=== PATIENT | male | born 1965 | race Caucasian/White ===

== ENCOUNTER 2023-03-15 08:13 | Inpatient (IN) ==
[2023-03-15] MEDS ORDERED: ONDANSETRON INJ 2 MG/ML 2 ML VIAL IV STA ×2 (08:55→09:42)
[2023-03-15] MEDS ORDERED: HYDROmorphone INJ 1 MG/ML SYRINGE IV STA (08:55)
[2023-03-15] MEDS ORDERED: SODIUM CHLORIDE 0.9% 1000ML 1,000 ML IV ONE ×2 (08:59→11:08)
--- NOTE | 2023-03-15 09:04 | Emergency Department Note ---
Impression & Plan Left upper lobe pneumonia, Acute intractable headache, Intractable vomiting, Failure of outpatient treatment ED Provider Note Name: RICARDO MANCIA Age: 57 Sex: M Arrives Via: Walk-In Informant: Patient, ED Provider: Reynaldo Sellers MD Chief Complaint: Illness Impression: As per impressions above Medical Decision Makin-year-old male arrives for evaluation of pneumonia and headache. He has a history of GERD but otherwise is quite healthy. Patient with diagnosis of left upper lobe pneumonia just 2 days ago at this facility. He has been on Omnicef and Doxy. Symptoms have continued worsening with increasing cough fevers chills and now an intractable headache. Severe anterior headache. A CT of the head is fortunately negative. Laboratory work-up is relatively unremarkable. An LP was obtained after discussing risks benefits and this is essentially unremarkable. A chest x-ray reveals significant increase in the left upper lobe pneumonia. He is having intractable vomiting while here and required multiple rounds Zofran and finally some IV Ativan to get symptoms under control. For the headache he received IV Dilaudid and then some IV Tylenol. This did seem to help the headache. Patient's oxygen remained in the mid 90s on room air however he did start getting some increasing junky lung sounds during his stay. I do not think that discharge would be in this gentlemen's favor and thus hospitalist was consulted for further management. At this time with normal vitals, normal lactic acid and no significant white blood cell count elevation I do not feel patient is truly severe sepsis or septic shock. That said I did obtain cultures prior to IV antibiotics he was given some IV fluids while here for dehydration. Prior Medical Record and Triage/Nursing Notes reviewed by Me External chart reviewed by me Differentials:Pneumonia, sepsis, meningitis, encephalitis, dehydration, fungal, viral, electrolyte imbalance, multiple other pathologies considered. Vital Signs: reviewed and remarkable for no significant abnormalities Interventions: Normal saline bolus, Dilaudid IV, Zofran IV, Ativan IV, Tylenol IV, Rocephin IV, doxycycline IV Labs:Reviewed and remarkable for no significant abnormalities including negative CSF studies. Imaging:CT of the head as per my informal interpretation. No intracranial hemo rrhage/mass effect appreciated. Confirmed by radiologist. Chest x-ray as per my interpretation reveals large left upper lobe infiltrate which is increased from previous chest x-ray. EKG:As per my interpretation. Indication. Normal sinus rhythm at 76 bpm with a QTc of 402. There is no ectopy nor ischemia. Cardiac/Tele Monitoring: Cardiac Monitoring: An Order was placed for continuous cardiac monitoring. The monitor shows a rate of 70 with a normal sinus rhythm. Consults:Dr Magui MARIE Hospitalist Plan: Disposition:Hospitalization. Condition: Good History of Present Illness:57-year-old gentleman arrives for evaluation of illness. Patient states that has been sick for the last week. Associated fevers, chills, mild cough. He been seen in the ER 2 days ago and diagnosed with a left upper lobe pneumonia. Extensive laboratory testing was obtained at that time. Patient notes a CT of the chest did show the pneumonia in the left upper lobe. He states has been having a continued headache chills and weakness since then. Headache is severe anterior and throbbing. Mild photophobia. Denies any neck stiffness or pain. Does note a history of infection years ago requiring an LP but did not have meningitis. Does note he gets headaches with fevers. Denies any falls, trauma, injuries. Denies any blood thinner use. He was started on doxycycline and Omnicef and has had 1 dose of them so far. Denies any rashes or tick bites. Patient has been using Tylenol Motrin for headache control with mild improvement. Past History:Rheumatic fever, GERD Home Medications:See Below Allergies:asa, amox Vitals:Blood Pressure: 178/115, Pulse 92, RR 22, T 37.5C, O2 95% on RA Physical Exam: GENERAL: Patient is uncomfortable appearing and in moderate distress. HEAD: TTP Anterior scalp, no rash EYES: No scleral icterus, unremarkable pupils. ENT: Mucous membranes dry, no nasal congestion. NECK: No masses appreciated, nomeningismus, trachea is midline. No nuchal rigidify RESPIRATORY: Mild dyspnea with some crackles throughout the entirety of the left lung base though no significant tachypnea nor decreased breath sounds at this time CARDIOVASCULAR: Tachy during exam.No murmurs, rubs, gallops appreciated. GASTROINTESTINAL: Abdomen soft, non-tender, no peritonitis. EXTREMITIES: Normal motion all extremities, no cyanosis, no edema. NEUROLOGIC: Alert and oriented, no focal neuro deficits SKIN: No rash, no jaundice, no diaphoresis. PSYCH: Appropriate GCS: 15 ED Course: Times/Reassessments: Patient does appear much better with medications. Did develop worsening cough while here though sats okay and he does not appear in significant respiratory distress. Procedure: Lumbar Puncture Indication: Headache, concern meningitis Verbal consent was obtained after the risks and benefits were explained, including but not limited to headache, bleeding/clotting, scarring, infection, pain, and bone/joint/nerve damage. At this time, the risks of the procedure are less than the risks of NOT performing the procedure. A time out was taken and the correct patient and site identified. The patient was placed in the sitting position and the back was prepped with betadine and draped in the standard fashion. The L3 intervertebral space was identified, anesthetized locally with 1% lidocaine without epinephrine, and the spinal needle was inserted through the skin with the bevel parallel to the dural fibers. The needle was carefully advanced into the lumbar cistern and 4 tubes of clear CSF was obtained. The stylet was replaced and the needle was removed. A bandaid was placed and the patient was placed in the supine position. The patient tolerated the procedure well and there were no complications. Reynaldo Sellers MD Past Med/Surg History Medical History Arthritis GERD (gastroesophageal reflux disease) History of rheumatic fever History of TMJ disorder Migraine Surgical History H/O rotator cuff surgery LEFT History of colonoscopy History of mandibular surgery [place] teeth removed Family History Mother Diabetes Breast cancer Family history of diabetes mellitus Father Diabetes Family history of diabetes mellitus Sister Heart disease Other No family history of adverse response to anesthesia Denies family history of Ovarian cancer Prostate cancer Myocardial infarction Lung cancer Colorectal cancer Stroke Social History Smoking Status: Never smoker Second Hand Exposure: No; Do You Dip or Chew Tobacco: No; Hx Alcohol Use: Yes Alcohol type: hard liquor Alcohol Intake Frequency: Monthly or Less Alcohol Intake Frequency Comment: less Hx Substance Use: No Preferred Language: Lao Visual Impairment: Limited Hearing Ability: Normal Head Animal Keeper Required: No Beliefs That Will Affect Care: None marital status: Current Living Situation: Spouse current occupational status: employed current occupation: [employer] How many Children do You have: 1 Feels Safe at Home: Yes Childhood Exposure to Second-Hand Smoke: No Diet: DASH and regular caffeine: Yes during the past year weight has: remained stable Dental Care, Regularly: Yes Physical Activity Frequency: Does not Exercise Seatbelt Use: always Sunscreen Use: Yes Assistive Devices: Glasses Allergies Allergies Allergy/AdvReac Type Severity Reaction Status Date / Time aspirin Allergy Intermediate LIPS SWELL Verified 03/13/23 20:26 amoxicillin AdvReac Intermediate DIARRHEA Verified 03/13/23 20:26 Home Meds Home Medications Medication Instructions Recorded Confirmed acetaminophen 500 mg tablet 1,000 mg PO Q8H PRN PAIN/FEVER 03/13/23 03/15/23 (Tylenol Extra Strength) ibuprofen 200 mg tablet 600 mg PO Q6H PRN PAIN/FEVER 03/13/23 03/15/23 Previous Rx's Medication Instructions Recorded cefdinir 300 mg capsule 300 mg PO BID 10 days #20 caps 03/13/23 doxycycline hyclate 100 mg tablet 100 mg PO BID 10 days #20 tabs 03/13/23 Results & Data (ED) Vital Signs Vital Signs - 24 hr 03/15/23 08:25 03/15/23 09:16 03/15/23 09:30 Temperature 37.5 C Temperature Source Oral Pulse Rate 92 H Pulse Rate [Apical] 76 Pulse Rhythm [Apical] Regular Respiratory Rate 22 18 Respiratory Effort / Characteristics Non-Labored Spontaneous Respiratory Depth Normal Normal Respiratory Pattern Blood Pressure 178/115 H Blood Pressure [Left Arm] 140/95 Blood Pressure Mean 136 Blood Pressure Mean [Left Arm] 110 Pulse Oximetry 95 95 Oxygen Delivery Method Room Air Room Air Sepsis Recent Fever Within 48 Hours No Sepsis New/Unexplained Change in Mental Status N/A Sepsis Action Taken by Nursing No Action Required 03/15/23 09:24 03/15/23 09:15 03/15/23 09:45 Temperature Temperature Source Pulse Rate 78 Pulse Rate [Apical] 81 78 Pulse Rhythm [Apical] Regular Respiratory Rate 19 20 Respiratory Effort / Characteristics Non-Labored Spontaneous Non-Labored Spontaneous Respiratory Depth Normal Normal Respiratory Pattern Regular Regular Blood Pressure Blood Pressure [Left Arm] 154/90 H 137/79 Blood Pressure Mean Blood Pressure Mean [Left Arm] 111 98 Pulse Oximetry 93 96 Oxygen Delivery Method Room Air Room Air Sepsis Recent Fever Within 48 Hours Sepsis New/Unexplained Change in Mental Status Sepsis Action Taken by Nursing 03/15/23 10:00 03/15/23 10:15 03/15/23 10:30 Temperature Temperature Source Pulse Rate Pulse Rate [Apical] 74 75 73 Pulse Rhythm [Apical] Regular Regular Respiratory Rate 20 19 19 Respiratory Effort / Characteristics Non-Labored Spontaneous Non-Labored Spontaneous Non-Labored Spontaneous Respiratory Depth Normal Normal Normal Respiratory Pattern Regular Regular Blood Pressure Blood Pressure [Left Arm] 141/74 H 134/77 138/84 Blood Pressure Mean Blood Pressure Mean [Left Arm] 96 96 102 Pulse Oximetry 96 97 96 Oxygen Delivery Method Room Air Room Air Room Air Sepsis Recent Fever Within 48 Hours Sepsis New/Unexplained Change in Mental Status Sepsis Action Taken by Nursing 03/15/23 11:00 03/15/23 11:15 03/15/23 11:30 Temperature Temperature Source Pulse Rate Pulse Rate [Apical] 69 71 75 Pulse Rhythm [Apical] Regular Regular Regular Respiratory Rate 16 19 16 Respiratory Effort / Characteristics Non-Labored Spontaneous Non-Labored Spontaneous Non-Labored Spontaneous Respiratory Depth Normal Normal Normal Respiratory Pattern Regular Blood Pressure Blood Pressure [Left Arm] 116/79 124/76 132/79 Blood Pressure Mean Blood Pressure Mean [Left Arm] 91 92 96 Pulse Oximetry 95 96 96 Oxygen Delivery Method Room Air Room Air Room Air Sepsis Recent Fever Within 48 Hours Sepsis New/Unexplained Change in Mental Status Sepsis Action Taken by Nursing Laboratory Data 03/15/23 09:09 03/15/23 09:09 Lab Results 03/15/23 03/15/23 03/15/23 Range/Units 09:09 09:09 09:09 WBC 8.47 (4.8-10.8) K/ul RBC 4.59 L (4.70-6.10) M/uL Hgb 14.6 (14.0-18.0) g/dl Hct 40.4 L (42.0-52.0) % MCV 88.0 (80.0-100.0) fL MCH 31.8 (25.0-34.0) pg MCHC 36.1 H (32.0-36.0) g/dL RDW Std Deviation 44.7 (36.4-46.3) fL RDW Coeff of To 13.9 (11.5-14.5) % Plt Count 213 (130-400) K/uL MPV 10.2 (9.4-12.4) fL Immature Gran % (Auto) 0.9 % Neut % (Auto) 85.0 % Lymph % (Auto) 9.1 % Whiteside % (Auto) 4.6 % Eos % (Auto) 0.2 % Baso % (Auto) 0.2 % Neut # (Auto) 7.19 H (1.40-6.50) K/uL Lymph # (Auto) 0.77 L (1.2-3.4) K/uL Whiteside # (Auto) 0.39 (0.11-0.59) K/uL Eos # (Auto) 0.02 (0-0.50) K/uL Baso # (Auto) 0.02 (0-0.2) K/uL Immature Gran # (Auto) 0.08 (0.01-0.20) K/uL Sodium 134 L (136-145) mmol/L Potassium 3.6 (3.5-5.1) mmol/L Chloride 101 (98-107) mmol/L Carbon Dioxide 24 (21-32) mmol/L Anion Gap 9 (3-11) BUN 8 (6-23) mg/dl Creatinine 0.81 (0.6-1.4) mg/dl Est Cr Clr Drug Dosing 104.4 ml/min Est GFR ( Amer) 115.1 ml/min Est GFR (Non-Af Amer) 99.4 ml/min BUN/Creatinine Ratio 9.9 L (10-20) Glucose 159 H (70-99(Fasting)) mg/dl Lactate 1.9 (0.4-2.0) mmol/L Calcium 9.3 (8.6-10.3) mg/dl Magnesium 1.6 L (1.7-2.4) mg/dl Total Bilirubin 0.4 (0.2-1.0) mg/dl Direct Bilirubin 0.1 (0-0.2) mg/dl AST 64 H (13-39) U/L ALT 85 H (7-52) U/L Alkaline Phosphatase 149 H (34-104) U/L Troponin I High Sens 6.5 (0-20) pg/ml Total Protein 7.5 (6.0-8.3) gm/dl Albumin 3.5 (3.4-5.0) gm/dl Procalcitonin (0-0.5) ng/ml Fluid Comment CSF Appearance CSF Color Xanthrochromic CSF WBC (0-5) CSF RBC (0-) CSF Cell Count Tube # CSF Chemistry Tube # CSF Glucose (40-70) mg/dl CSF Total Protein (15-45) mg/dl CSF C.neoform/gat PCR (NotDetected) CSF CMV DNA (PCR) (NotDetected) CSF Enterovirus (PCR) (NotDetected) CSF E. coli K1 (PCR) (NotDetected) CSF H. influenzae (PCR) (NotDetected) CSF HSV I (PCR) (NotDetected) CSF HSV II (PCR) (NotDetected) CSF HHV 6 (PCR) (NotDetected) CSF L.monocytogenes PCR (NotDetected) CSF N. meningitidis PCR (NotDetected) CSF Parechovirus (PCR) (NotDetected) CSF S. agalactiae (PCR) (NotDetected) CSF S. pneumoniae (PCR) (NotDetected) CSF VZV DNA (PCR) (NotDetected) Nasal Screen MRSA (PCR) (Negative) SARS-CoV-2, RNA, NAAT (NEGATIVE) 03/15/23 03/15/23 03/15/23 Range/Units 09:09 11:03 11:03 WBC (4.8-10.8) K/ul RBC (4.70-6.10) M/uL Hgb (14.0-18.0) g/dl Hct (42.0-52.0) % MCV (80.0-100.0) fL MCH (25.0-34.0) pg MCHC (32.0-36.0) g/dL RDW Std Deviation (36.4-46.3) fL RDW Coeff of To (11.5-14.5) % Plt Count (130-400) K/uL MPV (9.4-12.4) fL Immature Gran % (Auto) % Neut % (Auto) % Lymph % (Auto) % Whiteside % (Auto) % Eos % (Auto) % Baso % (Auto) % Neut # (Auto) (1.40-6.50) K/uL Lymph # (Auto) (1.2-3.4) K/uL Whiteside # (Auto) (0.11-0.59) K/uL Eos # (Auto) (0-0.50) K/uL Baso # (Auto) (0-0.2) K/uL Immature Gran # (Auto) (0.01-0.20) K/uL Sodium (136-145) mmol/L Potassium (3.5-5.1) mmol/L Chloride (98-107) mmol/L Carbon Dioxide (21-32) mmol/L Anion Gap (3-11) BUN (6-23) mg/dl Creatinine (0.6-1.4) mg/dl Est Cr Clr Drug Dosing ml/min Est GFR ( Amer) ml/min Est GFR (Non-Af Amer) ml/min BUN/Creatinine Ratio (10-20) Glucose (70-99(Fasting)) mg/dl Lactate (0.4-2.0) mmol/L Calcium (8.6-10.3) mg/dl Magnesium (1.7-2.4) mg/dl Total Bilirubin (0.2-1.0) mg/dl Direct Bilirubin (0-0.2) mg/dl AST (13-39) U/L ALT (7-52) U/L Alkaline Phosphatase (34-104) U/L Troponin I High Sens (0-20) pg/ml Total Protein (6.0-8.3) gm/dl Albumin (3.4-5.0) gm/dl Procalcitonin 0.30 (0-0.5) ng/ml Fluid Comment CSF Appearance CSF Color Xanthrochromic CSF WBC (0-5) CSF RBC (0-) CSF Cell Count Tube # CSF Chemistry Tube # CSF Glucose (40-70) mg/dl CSF Total Protein 36.7 (15-45) mg/dl CSF C.neoform/gat PCR Not Detected (NotDetected) CSF CMV DNA (PCR) Not Detected (NotDetected) CSF Enterovirus (PCR) Not Detected (NotDetected) CSF E. coli K1 (PCR) Not Detected (NotDetected) CSF H. influenzae (PCR) Not Detected (NotDetected) CSF HSV I (PCR) Not Detected (NotDetected) CSF HSV II (PCR) Not Detected (NotDetected) CSF HHV 6 (PCR) Not Detected (NotDetected) CSF L.monocytogenes PCR Not Detected (NotDetected) CSF N. meningitidis PCR Not Detected (NotDetected) CSF Parechovirus (PCR) Not Detected (NotDetected) CSF S. agalactiae (PCR) Not Detected (NotDetected) CSF S. pneumoniae (PCR) Not Detected (NotDetected) CSF VZV DNA (PCR) Not Detected (NotDetected) Nasal Screen MRSA (PCR) (Negative) SARS-CoV-2, RNA, NAAT (NEGATIVE) 03/15/23 03/15/23 03/15/23 Range/Units 11:03 11:03 11:38 WBC (4.8-10.8) K/ul RBC (4.70-6.10) M/uL Hgb (14.0-18.0) g/dl Hct (42.0-52.0) % MCV (80.0-100.0) fL MCH (25.0-34.0) pg MCHC (32.0-36.0) g/dL RDW Std Deviation (36.4-46.3) fL RDW Coeff of To (11.5-14.5) % Plt Count (130-400) K/uL MPV (9.4-12.4) fL Immature Gran % (Auto) % Neut % (Auto) % Lymph % (Auto) % Whiteside % (Auto) % Eos % (Auto) % Baso % (Auto) % Neut # (Auto) (1.40-6.50) K/uL Lymph # (Auto) (1.2-3.4) K/uL Whiteside # (Auto) (0.11-0.59) K/uL Eos # (Auto) (0-0.50) K/uL Baso # (Auto) (0-0.2) K/uL Immature Gran # (Auto) (0.01-0.20) K/uL Sodium (136-145) mmol/L Potassium (3.5-5.1) mmol/L Chloride (98-107) mmol/L Carbon Dioxide (21-32) mmol/L Anion Gap (3-11) BUN (6-23) mg/dl Creatinine (0.6-1.4) mg/dl Est Cr Clr Drug Dosing ml/min Est GFR ( Amer) ml/min Est GFR (Non-Af Amer) ml/min BUN/Creatinine Ratio (10-20) Glucose (70-99(Fasting)) mg/dl Lactate (0.4-2.0) mmol/L Calcium (8.6-10.3) mg/dl Magnesium (1.7-2.4) mg/dl Total Bilirubin (0.2-1.0) mg/dl Direct Bilirubin (0-0.2) mg/dl AST (13-39) U/L ALT (7-52) U/L Alkaline Phosphatase (34-104) U/L Troponin I High Sens (0-20) pg/ml Total Protein (6.0-8.3) gm/dl Albumin (3.4-5.0) gm/dl Procalcitonin (0-0.5) ng/ml Fluid Comment CSF Appearance Clear CSF Color Colorless Xanthrochromic No xanthochromia CSF WBC 1.11 (0-5) CSF RBC 0 (0-) CSF Cell Count Tube # 3 CSF Chemistry Tube # 1 CSF Glucose 69 (40-70) mg/dl CSF Total Protein (15-45) mg/dl CSF C.neoform/gat PCR (NotDetected) CSF CMV DNA (PCR) (NotDetected) CSF Enterovirus (PCR) (NotDetected) CSF E. coli K1 (PCR) (NotDetected) CSF H. influenzae (PCR) (NotDetected) CSF HSV I (PCR) (NotDetected) CSF HSV II (PCR) (NotDetected) CSF HHV 6 (PCR) (NotDetected) CSF L.monocytogenes PCR (NotDetected) CSF N. meningitidis PCR (NotDetected) CSF Parechovirus (PCR) (NotDetected) CSF S. agalactiae (PCR) (NotDetected) CSF S. pneumoniae (PCR) (NotDetected) CSF VZV DNA (PCR) (NotDetected) Nasal Screen MRSA (PCR) Negative (Negative) SARS-CoV-2, RNA, NAAT (NEGATIVE) 03/15/23 Range/Units 11:39 WBC (4.8-10.8) K/ul RBC (4.70-6.10) M/uL Hgb (14.0-18.0) g/dl Hct (42.0-52.0) % MCV (80.0-100.0) fL MCH (25.0-34.0) pg MCHC (32.0-36.0) g/dL RDW Std Deviation (36.4-46.3) fL RDW Coeff of To (11.5-14.5) % Plt Count (130-400) K/uL MPV (9.4-12.4) fL Immature Gran % (Auto) % Neut % (Auto) % Lymph % (Auto) % Whiteside % (Auto) % Eos % (Auto) % Baso % (Auto) % Neut # (Auto) (1.40-6.50) K/uL Lymph # (Auto) (1.2-3.4) K/uL Whiteside # (Auto) (0.11-0.59) K/uL Eos # (Auto) (0-0.50) K/uL Baso # (Auto) (0-0.2) K/uL Immature Gran # (Auto) (0.01-0.20) K/uL Sodium (136-145) mmol/L Potassium (3.5-5.1) mmol/L Chloride (98-107) mmol/L Carbon Dioxide (21-32) mmol/L Anion Gap (3-11) BUN (6-23) mg/dl Creatinine (0.6-1.4) mg/dl Est Cr Clr Drug Dosing ml/min Est GFR ( Amer) ml/min Est GFR (Non-Af Amer) ml/min BUN/Creatinine Ratio (10-20) Glucose (70-99(Fasting)) mg/dl Lactate (0.4-2.0) mmol/L Calcium (8.6-10.3) mg/dl Magnesium (1.7-2.4) mg/dl Total Bilirubin (0.2-1.0) mg/dl Direct Bilirubin (0-0.2) mg/dl AST (13-39) U/L ALT (7-52) U/L Alkaline Phosphatase (34-104) U/L Troponin I High Sens (0-20) pg/ml Total Protein (6.0-8.3) gm/dl Albumin (3.4-5.0) gm/dl Procalcitonin (0-0.5) ng/ml Fluid Comment CSF Appearance CSF Color Xanthrochromic CSF WBC (0-5) CSF RBC (0-) CSF Cell Count Tube # CSF Chemistry Tube # CSF Glucose (40-70) mg/dl CSF Total Protein (15-45) mg/dl CSF C.neoform/gat PCR (NotDetected) CSF CMV DNA (PCR) (NotDetected) CSF Enterovirus (PCR) (NotDetected) CSF E. coli K1 (PCR) (NotDetected) CSF H. influenzae (PCR) (NotDetected) CSF HSV I (PCR) (NotDetected) CSF HSV II (PCR) (NotDetected) CSF HHV 6 (PCR) (NotDetected) CSF L.monocytogenes PCR (NotDetected) CSF N. meningitidis PCR (NotDetected) CSF Parechovirus (PCR) (NotDetected) CSF S. agalactiae (PCR) (NotDetected) CSF S. pneumoniae (PCR) (NotDetected) CSF VZV DNA (PCR) (NotDetected) Nasal Screen MRSA (PCR) (Negative) SARS-CoV-2, RNA, NAAT NEGATIVE (NEGATIVE) Administered Medications Discontinued Medications Hydromorphone HCl (Hydromorphone Inj 1 Mg/Ml Syringe) 1 mg IV NOW STA Stop: 03/15/23 08:56 Last Admin: 03/15/23 09:22 Dose: 1 mg Documented By: Sodium Chloride (Nss 1000ml) 1,000 mls @ 999 mls/hr IV .Q1H1M ONE Stop: 03/15/23 09:59 Last Infusion: 03/15/23 10:31 Dose: 0 mls/hr Documented By: Admin: 03/15/23 09:25 Dose: 999 mls/hr Documented By: Ceftriaxone Sodium (Rocephin) 2,000 mg in 70 mls @ 140 mls/hr IV NOW STA Stop: 03/15/23 11:33 Last Infusion: 03/15/23 11:55 Dose: 0 mls/hr Documented By: Admin: 03/15/23 11:20 Dose: 140 mls/hr Documented By: Doxycycline Hyclate 100 mg/ (Dextrose) 110 mls @ 50 mls/hr IV NOW STA Stop: 03/15/23 13:15 Last Admin: 03/15/23 11:49 Dose: 50 mls/hr Documented By: Sodium Chloride (Nss 1000ml) 1,000 mls @ 999 mls/hr IV .Q1H1M ONE Stop: 03/15/23 12:08 Last Infusion: 03/15/23 12:29 Dose: 0 mls/hr Documented By: Admin: 03/15/23 11:23 Dose: 999 mls/hr Documented By: Acetaminophen (Ofirmev) 1,000 mg in 100 mls @ 400 mls/hr IV NOW STA Stop: 03/15/23 13:07 Last Admin: 03/15/23 13:11 Dose: 400 mls/hr Documented By: Lorazepam (Lorazepam 2 Mg/1 Ml Vial) 1 mg IV NOW STA Stop: 03/15/23 10:46 Last Admin: 03/15/23 10:51 Dose: 1 mg Documented By: Ondansetron HCl (Ondansetron Inj 2 Mg/Ml 2 Ml Vial) 4 mg IV NOW STA Stop: 03/15/23 08:56 Last Admin: 03/15/23 09:22 Dose: 4 mg Documented By: Ondansetron HCl (Ondansetron Inj 2 Mg/Ml 2 Ml Vial) 4 mg IV NOW STA Stop: 03/15/23 09:43 Last Admin: 03/15/23 09:51 Dose: 4 mg Documented By: Imaging Data Radiologist's Impression: Head CT 03/15/23 08:55 CT head/brain wo con CLINICAL HISTORY: severe headache Technique: Contiguous axial CT images of the head were acquired from the base of the skull to the vertex without intravenous contrast administration. Images were viewed in brain, subdural and bone windows. Automated dose lowering techniques and/or adjustment according to patient size were utilized for this exam. Comparison: None available at the time of this dictation. Findings: The ventricles, basal cisterns, and cerebral sulci are normal. There is no acute intracranial hemorrhage or evidence of acute territorial infarction. Neither mass effect, shift of the midline structures, nor abnormal extra-axial fluid collections are shown. Imaged portions of the paranasal sinuses and mastoid air cells are clear. The orbits appear normal. There are no acute fractures of the calvaria or scalp swelling. Impression: No acute intracranial hemorrhage, no evidence of acute territorial infarction or other acute intracranial disease process. ACT 112: Negative or not required by law. Electronically signed by: Nash Sears M.D. 03/15/2023 9:34 AM Chest X-Ray 03/15/23 08:56 XR chest 1V portable CLINICAL HISTORY: Sepsis TECHNIQUE: Single frontal radiograph of the chest was obtained. Comparison: Comparison is made to chest radiograph 03/13/2023 FINDINGS: No lines and tubes are seen. The cardiomediastinal silhouette is normal. Left lateral airspace opacity has increased from prior radiograph. No evidence of pleural effusion or pneumothorax. IMPRESSION: Interval increase in left lateral airspace opacity compatible with pneumonia. ACT 112: Negative or not required by law. Electronically signed by: Nash Sears M.D. 03/15/2023 9:45 AM Discharge Plan Visit Data Chief Complaint: Head Pain Stated Complaint: PNEUMONIA POSITIVE ED Provider: Reynaldo Sellers Discharge Problem: Left upper lobe pneumonia, Acute intractable headache, Intractable vomiting, Failure of outpatient treatment Forms Stand Alone Forms: [employer] Prescriptions Prescriptions: No Action acetaminophen [Tylenol Extra Strength] 500 mg Tablet 1,000 mg PO Q8H PRN (Reason: PAIN/FEVER) ibuprofen 200 mg Tablet 600 mg PO Q6H PRN (Reason: PAIN/FEVER) cefdinir 300 mg capsule 300 mg PO BID 10 Days Qty: 20 0RF doxycycline hyclate 100 mg tablet 100 mg PO BID 10 Days Qty: 20 0RF Referrals Referrals: Edouard Khan MD [Primary Care Provider] - Left upper lobe pneumonia Qualifiers: Pneumonia type: due to unspecified organism Qualified Code(s): J18.9 - Pneumonia, unspecified organism Acute intractable headache Qualifiers: Headache type: unspecified Qualified Code(s): R51.9 - Headache, unspecified
[2023-03-15 09:29] LABS: Basophils # (auto) 0.02 K/uL (0-0.2); Basophils % (auto) 0.2 %; Eosinophils # (auto) 0.02 K/uL (0-0.50); Eosinophils % (auto) 0.2 %; Hematocrit (blood only) 40.4 % (42.0-52.0); Hemoglobin 14.6 g/dl (14.0-18.0); Immature Granulocytes # (auto) 0.08 K/uL (0.01-0.20); Immature Granulocytes % (auto) 0.9 %; Lymphocytes # (auto) 0.77 K/uL (1.2-3.4); Lymphocytes % (auto) 9.1 %; Mean Corpuscular Hemoglobin 31.8 pg (25.0-34.0); Mean Corpuscular Hgb Conc 36.1 g/dL (32.0-36.0); Mean Platelet Volume 10.2 fL (9.4-12.4); Monocytes # (auto) 0.39 K/uL (0.11-0.59); Monocytes % (auto) 4.6 %; Neutrophils # (auto) 7.19 K/uL (1.40-6.50); Platelet Count 213 K/uL (130-400); RDW Coefficient of Variation 13.9 % (11.5-14.5); RDW Standard Deviation 44.7 fL (36.4-46.3); Red Blood Count 4.59 M/uL (4.70-6.10); White Blood Count 8.47 K/ul (4.8-10.8)
--- NOTE | 2023-03-15 09:35 | CT Scan Report ---
CT head/brain wo con CLINICAL HISTORY: severe headache Technique: Contiguous axial CT images of the head were acquired from the base of the skull to the nieves donald without intravenous contrast administration. Images were viewed in brain, subdural and [facility] . Automated dose lowering techniques and/or adjustment according to patient size were utilized for this exam. Comparison: None available at the time of this dictation. Findings: The ventricles, basal cisterns, and cerebral sulci are normal. There is no acute intracranial hemorrh age or evidence of acute territorial infarction. Neither mass effect, shift of the midline structures , nor abnormal extra-axial fluid collections are shown. Imaged portions of the paranasal sinuses and mastoid air cells are clear. The orbits appear normal. There are no acute fractures of the calvaria or scalp swelling. Impression: No acute intracranial hemorrhage, no evidence of acute territorial infarction or other acute intracra nial disease process. ACT 112: Negative or not required by law. Electronically signed by: Nash Sears M.D. 03/15/2023 9:34 AM
[2023-03-15 09:44] LABS: Albumin Level 3.5 gm/dl (3.4-5.0); BUN Creatinine Ratio 9.9 (10-20); Bilirubin Direct 0.1 mg/dl (0-0.2); Bilirubin,Total 0.4 mg/dl (0.2-1.0); Calcium 9.3 mg/dl (8.6-10.3); Creatinine Clr Calc Pharmacy 104.4 ml/min; Est GFR (African American) 115.1 ml/min; Est GFR (Non-African American) 99.4 ml/min; Magnesium 1.6 mg/dl (1.7-2.4); Potassium 3.6 mmol/L (3.5-5.1); Total Protein 7.5 gm/dl (6.0-8.3)
--- NOTE | 2023-03-15 09:47 | XRay Report ---
XR chest 1V portable CLINICAL HISTORY: Sepsis TECHNIQUE: Single frontal radiograph of the chest was obtained. Comparison: Comparison is made to chest radiograph 03/13/2023 FINDINGS: No lines and tubes are seen. The cardiomediastinal silhouette is normal. Left lateral airspace opacit y has increased from prior radiograph. No evidence of pleural effusion or pneumothorax. IMPRESSION: Interval increase in left lateral airspace opacity compatible with pneumonia. ACT 112: Negative or not required by law. Electronically signed by: Nash Sears M.D. 03/15/2023 9:45 AM
[2023-03-15 09:49] LABS: Troponin I High Sensitivity 6.5 pg/ml (0-20)
[2023-03-15] MEDS ORDERED: LORazepam 2 MG/1 ML VIAL IV STA ×2 (10:45→21:37)
[2023-03-15] MEDS ORDERED: cefTRIAXone SODIUM 2,000 MG/70 ML BAG IV STA (11:04)
[2023-03-15] MEDS ORDERED: DOXYCYCLINE HYCLATE 100 MG in DEXTROSE 5% 100 ML IV STA (11:04)
[2023-03-15 11:36] LABS: CSF Glucose 69 mg/dl (40-70)
[2023-03-15 11:58] LABS: CSF Chemistry Tube # 1
[2023-03-15 12:12] LABS: Appearance CSF Clear; CSF Xanthrochromic No xanthochromia; Color CSF Colorless
[2023-03-15 12:13] LABS: CSF Count Tube # 3
--- NOTE | 2023-03-15 12:15 | History & Physical Report ---
Date of Service March 15, 2023 Assessment & Plan (1) Pneumonia: Plan: Suspected left lobar pneumonia Symptom onset around 03/10 with fevers up to 101, sore throat, cough, congestion Patient has had severe headache minimally improved with ibuprofen - CXR: Interval increase in left lateral opacity suspicious for pneumonia -CThead: No acute findings -No leukocytosis, Pro-Matheus negative - Mild transaminitis since 03/13, without elevated bilirubin Although dense appearing opacity is noted on chest x-ray, patient has a negative procalcitonin and no leukocytosis. He does note that he is very sensitive to lungs and has been around chemicals in the past for work; also preceding his symptoms he was going through a box of old coins and had a large amount of aerosolized dust which he inhaled shortly before his symptoms started. Patient and his in particular worried about fungal pneumonia due to his past lung sensitivity, although patient denies history of immunosuppression. Fungitell is pending. CTchest pending. MRSA nares pending. Rocephin/Doxy continued for pneumonia with atypical coverage. If MRSA nares positive would include vancomycin. Patient was on cefdinir/Doxy as outpatient, given time course of less than 72 hours would not consider this clinical failure yet and reasonable to continue Rocephin Doxy on admit Does not meet sepsis criteria on admission. Blood cultures and CSF cultures pending (2) Headache: Plan: Severe headache since Friday, worsened to 10 out of 10 in the last 2-3 days Denies photophobia, but does endorse he is more comfortable trying to rest in the dark. No focal neuro symptoms CT head without acute findings. LP drawn while in ER, viral panel pending Patient is with trace transaminitis, although no thrombocytopenia Lyme/zaki plasmosis pending DVT PPx: SCDs. Pharmacoppx deferred temporarily after LP. Diet: Regular Disposition: Medical telemetry CODE STATUS: Full code History of Present Illness Primary Care Provider: Edouard Khan MD Mr. Lechuga is a 57-year-old male with a past medical history of GERD, past pneumonia, and rheumatic fever who presents with intractable headache, cough, and shortness of breath and who has a progressively worsening. Dense left lateral airspace opacity increased from earlier in the week ER evaluation. Due to his severe intractable headache and persistent symptoms with rising ESR. Curb 65 with 0 points; however due to worsening over the last 2 days and density of infiltrate patient is recommended for admission of high risk pneumonia, with severe headache evaluation given persistence since 03/11. CT shows no acute hemorrhage, infarct, or other acute process. Due to his headache with persistent nausea/vomiting patient did undergo an LP in the ER which has been sent for PCR studies. Transaminases are mildly elevated, platelet count is normal. Lyme and anaplasmosis tests are pending. Sputum culture ordered at time of consultation. EKG on admission is normal sinus rhythm without acute ST segment changes or notable arrhythmia. QTc is 402. No heart block/PA 168 Patient reports Friday/Friday had headache, fever, chills, and cough. Had an XR, COVID, and flu test as outpatient 'which were all negative.' Returned home but headache which began last Friday continued to worsen and returned his PCP on . XR showed ?LLL PNA and was placed on cefdinir and doxycycline. Continued to have headache and feel poorly and was referred to the ER. - Headache has been constant 10/10 since , progressively increasing since Friday - +nonproductive cough which has actually improved over the last 2 days. L lateral chest hurts when coughing. - Fevers up to 101-102.4, last fever was 99.9*F this morning - +chills, +sweats which seem to be worse night and last night. +night sweats + Vomiting yesterday, watery in color without blood or melena. Some chicken soup in + diarrhea just since yesterday Rosie photo/phonosenstive Pt reports prior to arrival in the [place] Box of course trigged a respiratory reaction very danie and breathed in some musty material/dust. 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 Medical History: Reviewed Medications: Reviewed Surgical History: Reviewed Family history: Reviewed Allergies: Reviewed. Allergic to aspirin (lip swelling) and amoxacillin (diarrhea and upset stomach). Social History: No tobacco product use. no etoh use. No recreational drug use. Code Status: Full Code Allergies Allergy/AdvReac Type Severity Reaction Status Date / Time aspirin Allergy Intermediate LIPS SWELL Verified 03/13/23 20:26 amoxicillin AdvReac Intermediate DIARRHEA Verified 03/13/23 20:26 Home Medications Medication Instructions Recorded Confirmed Type acetaminophen 500 mg tablet 1,000 mg PO Q8H PRN PAIN/FEVER 03/13/23 03/15/23 History (Tylenol Extra Strength) cefdinir 300 mg capsule 300 mg PO BID 10 days #20 caps 03/13/23 03/15/23 Rx doxycycline hyclate 100 mg tablet 100 mg PO BID 10 days #20 tabs 03/13/23 03/15/23 Rx ibuprofen 200 mg tablet 600 mg PO Q6H PRN PAIN/FEVER 03/13/23 03/15/23 History Past Med/Surg History Medical History Arthritis GERD (gastroesophageal reflux disease) History of rheumatic fever History of TMJ disorder Migraine Surgical History H/O rotator cuff surgery LEFT History of colonoscopy History of mandibular surgery [place] teeth removed Family History Mother Diabetes Breast cancer Family history of diabetes mellitus Father Diabetes Family history of diabetes mellitus Sister Heart disease Other No family history of adverse response to anesthesia Denies family history of Ovarian cancer Prostate cancer Myocardial infarction Lung cancer Colorectal cancer Stroke Social History Smoking Status: Never smoker Second Hand Exposure: No; Do You Dip or Chew Tobacco: No; Hx Alcohol Use: Yes Alcohol type: hard liquor Alcohol Intake Frequency: Monthly or Less Alcohol Intake Frequency Comment: less Hx Substance Use: No Preferred Language: Swazi Visual Impairment: Limited Hearing Ability: Normal 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 Beliefs That Will Affect Care: None marital status: Current Living Situation: Spouse current occupational status: employed current occupation: [employer] How many Children do You have: 1 Feels Safe at Home: Yes Childhood Exposure to Second-Hand Smoke: No Diet: DASH and regular caffeine: Yes during the past year weight has: remained stable Dental Care, Regularly: Yes Physical Activity Frequency: Does not Exercise Seatbelt Use: always Sunscreen Use: Yes Assistive Devices: Glasses Review of Systems Review of Systems: All systems reviewed & are unremarkable except as noted in HPI & below Physical Exam Physical Exam: General: A&Ox3. NAD. Cooperative. Patient laying flat in bed post-LP HEENT: Atraumatic, normocephalic. Vision/hearing grossly intact. Pupils equal and reactive to light. EOM intact without nystagmus. No nuchal rigidity Pulm: LLL coarse, otherwise clear without wheezing. Symmetrical chest rise. No increased work of breathing. No respiratory distress. Cardiac: RRR, -mrg. Radial pulses intact and symmetrical. Abdominal: Nontender, nondistended, soft. BS present. Ext; Warm, dry. Hands and feet with intact sensation to soft touch and 5/5 strength bilaterally. Results & Data Results & Data Vital Signs (Past 12 Hours) Vital Signs Temp Pulse Pulse Resp BP BP Pulse Ox 03/15/23 11:30 75 16 132/79 96 03/15/23 11:15 71 19 124/76 96 03/15/23 11:00 69 16 116/79 95 03/15/23 10:30 73 19 138/84 96 03/15/23 10:15 75 19 134/77 97 03/15/23 10:00 74 20 141/74 H 96 03/15/23 09:45 78 20 137/79 96 03/15/23 09:15 81 19 154/90 H 93 03/15/23 09:24 78 03/15/23 09:30 76 18 140/95 95 03/15/23 09:16 03/15/23 08:25 37.5 C 92 H 22 178/115 H 95 O2 Del Method 03/15/23 11:30 Room Air 03/15/23 11:15 Room Air 03/15/23 11:00 Room Air 03/15/23 10:30 Room Air 03/15/23 10:15 Room Air 03/15/23 10:00 Room Air 03/15/23 09:45 Room Air 03/15/23 09:15 Room Air 03/15/23 09:24 03/15/23 09:30 Room Air 03/15/23 09:16 Room Air 03/15/23 08:25 PG Care Time/CCT Total # of Minutes Spent Total Time Spent with Patient: Total time spent is greater than 50% in coordination of care (as documented) at patient's floor/unit and/or counseling patient: Coding Level of Care Code 14486 INT INP/OBS CARE MIN Diagnoses Pneumonia J18.9 Laterality: left Lung location: upper lobe of lung Pneumonia type: due to unspecified organism Headache R51.9 (1) Pneumonia Laterality: left Lung location: upper lobe of lung Pneumonia type: due to unspecified organism Qualified Code(s): J18.9 - Pneumonia, unspecified organism
[2023-03-15 12:44] LABS: Cryptococcus neoformans/ga PCR Not Detected (NotDetected); Cytomegalovirus PCR Not Detected (NotDetected); Enterovirus PCR Not Detected (NotDetected); Escherichia coli K1 PCR Not Detected (NotDetected); Haemophilius influenzae PCR Not Detected (NotDetected); Herpes Simplex Virus 1 PCR Not Detected (NotDetected); Herpes Simplex Virus 2 PCR Not Detected (NotDetected); Human Herpes Virus 6 PCR Not Detected (NotDetected); Human Parechovirus PCR Not Detected (NotDetected); Listeria monocytogenes PCR Not Detected (NotDetected); Neisseria meningitidis PCR Not Detected (NotDetected); Streptococcus agalactiae PCR Not Detected (NotDetected); Streptococcus pneumoniae PCR Not Detected (NotDetected); Varicella Zoster Virus PCR Not Detected (NotDetected)
[2023-03-15] MEDS ORDERED: ACETAMINOPHEN 1,000 MG/100 ML VIAL IV STA (12:53)
--- NOTE | 2023-03-15 13:40 | CT Scan Report ---
CT chest diagnostic wo con CLINICAL HISTORY: ?PNA TECHNIQUE: Multidetector row helical CT of the chest was performed. Coronal and sagittal reformations were obtained. Automated dose lowering techniques and/or adjustment according to patient size were u tilized for this exam. CT DOSE: 465.93 mGy.cm Comparison: Comparison is made to CT chest 03/13/2023 and chest radiograph 03/15/2023 FINDINGS: Lungs and pleura: Interval worsening of left upper lobe pneumonia. Minimal bilateral atelectasis is s een. Heart and pericardium: Heart size is normal. No pericardial effusion. Vessels: Mild atherosclerotic changes in the aorta and coronary arteries. Mediastinum and wu: Subcentimeter lymph nodes are seen. Chest wall and lower neck: Unremarkable. Abdomen: Unremarkable. Bones: Degenerative changes in the thoracic spine. IMPRESSION: Worsening of left upper lobe pneumonia compared to prior CT. ACT 112: Negative or not required by law. Electronically signed by: Nash Sears M.D. 03/15/2023 1:37 PM
[2023-03-15] MEDS ORDERED: ACETAMINOPHEN 325 MG TAB PO PRN (15:29)
[2023-03-15 16:23] LABS: Appearance Urine Clear (Clear); Bacteria Urine Automated Negative (Negative); Bilirubin Urine Negative (Negative); Blood Urine Negative (Negative); Cast Urine Automated 0 /lpf (0-5); Color Urine Yellow; Glucose Urine UA Negative (Negative); Ketones Urine Negative (Negative); Leukocyte Esterase Urine Negative (Negative); Nitrite Urine Negative (Negative); Protein Urine 1+ (Negative); RBC Urine Automated 0-4 /hpf (0-4); Specific Gravity Urine 1.014 (1.000-1.030); Urobilinogen Urine Negative (Negative); pH Urine 6.5 (4.5-7.5)
--- NOTE | 2023-03-15 17:57 | Electrocardiogram Report ---
Test Reason : Blood Pressure : / mmHG Vent. Rate : 076 BPM Atrial Rate : 076 BPM P-R Int : 168 ms QRS Dur : 094 ms QT Int : 358 ms P-R-T Axes : 046 -29 015 degrees QTc Int : 402 ms Normal sinus rhythm Normal ECG When compared with ECG of 04-MAR-2013 09:35, Vent. rate has increased BY 27 BPM T wave amplitude has decreased in Anterior leads Confirmed by Jeremiah Mosley ([id number]) on 03/15/2023 5:57:15 PM Referred By: REFERRED SELF Confirmed By:Jeremiah Mosley
[2023-03-15] MEDS ORDERED: ONDANSETRON INJ 2 MG/ML 2 ML VIAL IV PRN ×2 (17:58→21:09)
[2023-03-15] MEDS ORDERED: ACETAMINOPHEN 500 MG TAB PO SCH (18:00)
[2023-03-15] MEDS: ACETAMINOPHEN 500 MG TAB PO SCH (19:18)
[2023-03-15] MEDS: BUTALBITAL/ASPIRIN/CAFFEINE 1 TAB TAB PO PRN ×2 (19:35→23:20)
[2023-03-15] MEDS: SODIUM CHLOR 7% 4 ML NEB NEB SCH (19:49)
[2023-03-15] MEDS ORDERED: PROMETHAZINE HCL 25 MG TAB PO PRN (21:08)
[2023-03-15] MEDS ORDERED: ondansetron HCL 8 MG in DEXTROSE 5% 50 ML IV PRN ×2 (21:12→21:13)
[2023-03-15] MEDS: MoRPHine SULFATE 2 MG/ML CARP IV PRN (21:28)
[2023-03-15] MEDS: DOXYCYCLINE HYCLATE 100 MG in DEXTROSE 5% 100 ML IV SCH (21:37)
[2023-03-16] MEDS: ACETAMINOPHEN 500 MG TAB PO SCH ×3 (04:06→21:52)
[2023-03-16] MEDS: BUTALBITAL/ASPIRIN/CAFFEINE 1 TAB TAB PO PRN ×3 (04:07→20:37)
[2023-03-16] MEDS: MoRPHine SULFATE 2 MG/ML CARP IV PRN ×3 (05:02→20:12)
[2023-03-16 06:29] LABS: Basophils # (auto) 0.02 K/uL (0-0.2); Basophils % (auto) 0.3 %; Eosinophils # (auto) 0.03 K/uL (0-0.50); Eosinophils % (auto) 0.4 %; Hematocrit (blood only) 36.4 % (42.0-52.0); Hemoglobin 13.3 g/dl (14.0-18.0); Immature Granulocytes # (auto) 0.05 K/uL (0.01-0.20); Immature Granulocytes % (auto) 0.7 %; Lymphocytes # (auto) 1.22 K/uL (1.2-3.4); Lymphocytes % (auto) 16.8 %; Mean Corpuscular Hemoglobin 31.8 pg (25.0-34.0); Mean Corpuscular Hgb Conc 36.5 g/dL (32.0-36.0); Mean Corpuscular Volume 87.1 fL (80.0-100.0); Mean Platelet Volume 10.1 fL (9.4-12.4); Monocytes # (auto) 0.57 K/uL (0.11-0.59); Monocytes % (auto) 7.8 %; Neutrophils # (auto) 5.38 K/uL (1.40-6.50); Platelet Count 219 K/uL (130-400); RDW Standard Deviation 44.9 fL (36.4-46.3); Red Blood Count 4.18 M/uL (4.70-6.10); White Blood Count 7.27 K/ul (4.8-10.8)
[2023-03-16 06:50] LABS: Albumin Globulin Ratio 0.9 (0.9-2); Albumin Level 3.2 gm/dl (3.4-5.0); BUN Creatinine Ratio 8.8 (10-20); Bilirubin,Total 0.3 mg/dl (0.2-1.0); Calcium 8.4 mg/dl (8.6-10.3); Creatinine Clr Calc Pharmacy 92.9 ml/min; Est GFR (African American) 108.8 ml/min; Est GFR (Non-African American) 93.9 ml/min; Globulin 3.5 gm/dl (2.5-4.0); Potassium 3.4 mmol/L (3.5-5.1); Total Protein 6.7 gm/dl (6.0-8.3)
[2023-03-16] MEDS: SODIUM CHLOR 7% 4 ML NEB NEB SCH ×2 (07:54→19:57)
[2023-03-16] MEDS: DOXYCYCLINE HYCLATE 100 MG in DEXTROSE 5% 100 ML IV SCH ×2 (08:58→21:52)
[2023-03-16] MEDS: cefTRIAXone SODIUM 2,000 MG in DEXTROSE 5% 50 ML IV SCH (11:47)
--- NOTE | 2023-03-16 18:09 | Hospitalist Progress Note ---
Date of Service March 16, 2023 Assessment & Plan (1) Pneumonia: Plan: CAPclinically worseninghowever at the same time I agree with admitting physician that his overall clinical presentation is probably that of a pneumonia that was "on the upswing" and despite what appears to have been appropriate antibiotic coverage, he was worsening. MRSA nares is negative, he is starting to level off and show some improvement on Rocephin and doxycycline (appreciate the approach of admitting physician keeping him on essentially the same regimen to prove that it really was just more time on treatment needed, rather than an alteration in treatment)and I suspect patient will continue to improve. Discussed the natural history of clearing and pneumonia (anticipate a fairly nasty catarrhal phase, followed by a bit of a prolonged dry cough, and probably the better part of a month of slowly resolving fatigue)but hopefully home soonas soon as he feels up to it (which he does not today) (also reviewed the progression of his imaging with him - showing him both CXR from 03/13 and 03/15, as well as CT from 03/15) (2) Headache: Plan: Improved DVT PPx: SCDs. Pharmacoppx deferred temporarily after LP. Diet: Regular Disposition: Medical telemetry CODE STATUS: Full code (3) Transaminitis: Plan: Other infectious serologies are pending, but I suspect this is a nondescript transaminitis, or even possibly baseline fatty liver given the common predominance of this in the region. LFTs have been stablecontinue to trendlargely an issue for outpatient follow-up, however. (4) DVT prophylaxis: Plan: Ambulation Plan Anticipate home soon Admission and Anticipated Discharge Date Admission Date: March 15, 2023 Subjective Ongoing cough and some orange rust colored sputum. Notes that chest pain has improved quite nicely. Feels very fatigued, but otherwise a little bit better. Review of Systems Review of Systems: All systems reviewed & are unremarkable except as noted in HPI & below Physical Exam Physical Exam: In general he is awake alert oriented x3 pleasant no distress. HEENT normocephalic atraumatic mucous membranes moist. Lungs are surprisingly clear to auscultation bilaterallyI was really expecting rales or diminished air entrybut to the time I examined him he sounded quite clear no rales rhonchi or wheezes good air entry good effort. Did have a few coughing fits while we were talking. Skin shows no rashes no pallor or icterus. Neuro without focal deficits. Results & Data Results & Data Vital Signs (Past 12 Hours) Vital Signs Temp Pulse Resp BP Pulse Ox O2 Del Method 03/16/23 14:25 99.5 F 75 17 123/74 95 Room Air 03/16/23 08:00 Room Air 03/16/23 07:57 65 16 94 Room Air 03/16/23 07:08 98.6 F 70 16 120/76 95 Room Air PG Care Time/CCT Total # of Minutes Spent Total Time Spent with Patient: Total time spent is greater than 50% in coordination of care (as documented) at patient's floor/unit and/or counseling patient: Coding Level of Care Code 70058 SUB INP/OBS CARE 3/50MIN Diagnoses Pneumonia J18.9 Laterality: left Lung location: upper lobe of lung Pneumonia type: due to unspecified organism Headache R51.9 Transaminitis R74.01 DVT prophylaxis Z29.9 (1) Pneumonia Laterality: left Lung location: upper lobe of lung Pneumonia type: due to unspecified organism Qualified Code(s): J18.9 - Pneumonia, unspecified organism
[2023-03-17] MEDS: ACETAMINOPHEN 500 MG TAB PO SCH ×3 (06:19→22:12)
[2023-03-17 06:23] LABS: Albumin Level 3.4 gm/dl (3.4-5.0); Bilirubin,Total 0.3 mg/dl (0.2-1.0); Calcium 8.6 mg/dl (8.6-10.3); Potassium 4.1 mmol/L (3.5-5.1)
[2023-03-17 06:28] LABS: Albumin Globulin Ratio 0.9 (0.9-2); BUN Creatinine Ratio 9.6 (10-20); Est GFR (African American) 104.6 ml/min; Est GFR (Non-African American) 90.3 ml/min; Globulin 3.9 gm/dl (2.5-4.0); Total Protein 7.3 gm/dl (6.0-8.3)
[2023-03-17] MEDS: SODIUM CHLOR 7% 4 ML NEB NEB SCH (07:13)
[2023-03-17 07:23] LABS: Basophils # (auto) 0.03 K/uL (0-0.2); Basophils % (auto) 0.5 %; Eosinophils # (auto) 0.22 K/uL (0-0.50); Eosinophils % (auto) 3.6 %; Hematocrit (blood only) 40.2 % (42.0-52.0); Hemoglobin 14.2 g/dl (14.0-18.0); Immature Granulocytes # (auto) 0.06 K/uL (0.01-0.20); Lymphocytes # (auto) 1.23 K/uL (1.2-3.4); Mean Corpuscular Hemoglobin 31.4 pg (25.0-34.0); Mean Corpuscular Hgb Conc 35.3 g/dL (32.0-36.0); Mean Corpuscular Volume 88.9 fL (80.0-100.0); Mean Platelet Volume 9.6 fL (9.4-12.4); Monocytes # (auto) 0.73 K/uL (0.11-0.59); Monocytes % (auto) 11.9 %; Neutrophils # (auto) 3.88 K/uL (1.40-6.50); Platelet Count 242 K/uL (130-400); RDW Coefficient of Variation 14.2 % (11.5-14.5); RDW Standard Deviation 45.7 fL (36.4-46.3); Red Blood Count 4.52 M/uL (4.70-6.10); White Blood Count 6.15 K/ul (4.8-10.8)
[2023-03-17] MEDS: DOXYCYCLINE HYCLATE 100 MG in DEXTROSE 5% 100 ML IV SCH ×2 (09:11→22:12)
[2023-03-17] MEDS: cefTRIAXone SODIUM 2,000 MG in DEXTROSE 5% 50 ML IV SCH (11:31)
--- NOTE | 2023-03-17 12:41 | XRay Report ---
XR chest 1V portable CLINICAL HISTORY: left pneumonia TECHNIQUE: Single frontal radiograph of the chest was obtained. Comparison: Comparison is made to chest radiograph 03/15/2023 FINDINGS: No lines and tubes are seen. The cardiomediastinal silhouette is normal. Left upper lung airspace [place] is seen. No evidence of pleural effusion or pneumothorax. IMPRESSION: Stable appearance of left pneumonia. ACT 112: Negative or not required by law. Electronically signed by: Nash Sears M.D. 03/17/2023 12:39 PM
[2023-03-17] MEDS ORDERED: ALBUT/IPRATROP 3MG/0.5MG NEB 3 ML VIAL NEB PRN (14:04)
[2023-03-17] MEDS: BUTALBITAL/ASPIRIN/CAFFEINE 1 TAB TAB PO PRN (14:17)
--- NOTE | 2023-03-17 16:06 | Hospitalist Progress Note ---
Date of Service March 17, 2023 Assessment & Plan (1) Pneumonia: Plan: Nonproductive cough. Probably viral. Chest x-ray is stable. MRSA nares is negative. Currently on Rocephin and doxycycline. He took several doses of cefdinir and doxycycline as an outpatient and states the doxycycline upsets his stomach. (2) Headache: Plan: Now resolved. Symptomatic treatment. (3) Transaminitis: Plan: Mild. Serial labs. No intervention necessary at this time. Suspect viral etiology (4) DVT prophylaxis: Plan: Ambulation Plan Anticipate home soon. Hopefully tomorrow, March 18 Admission and Anticipated Discharge Date Admission Date: March 15, 2023 Subjective Minimal pneumonia symptoms. Chest x-ray is stable with left upper lobe infiltrate. Sputum is nondiagnostic. He is on room air. He remains on intravenous Rocephin and doxycycline. He was given oral cefdinir and doxycycline as an outpatient but only took a few doses of each. The doxycycline apparently causes GI upset. CSF culture is negative from the lumbar puncture completed March 15. Liver enzymes remain mildly elevated. This probably is a viral syndrome. Hopefully home tomorrow, March 18. With continued outpatient chest x-ray until clear. Review of Systems Review of Systems: Constitutional-no fever or chills ENT-no blurred vision, no double vision, no epistaxis, no sore throat Respiratory-occasional nonproductive cough. No wheezing, no shortness of breath Cardiac-no palpitations, no chest pain, no syncope GI-no nausea, vomiting, diarrhea, melena, hematochezia -no urinary retention, no urinary incontinence, no dysuria, no hematuria Musculoskeletal-no joint pain, no muscle tenderness Skin-no bruising, no rashes, no pruritus Neuro-no isolated weakness, no paresthesia. Occasional headache Psych-no depression, no anxiety Physical Exam Physical Exam: General-alert and oriented x3, no fevers, no chills HEENT-head atraumatic and normocephalic, pupils equal and reactive to light, extraocular muscles intact Neck-no lymphadenopathy or thyromegaly, trachea midline Chest-clear to auscultation percussion. No rales wheezing or rhonchi Cardiac-regular rate and rhythm, normal S1 and S2 Abdomen-normal bowel sounds, nontender, no hepatosplenomegaly Extremities-no cyanosis, clubbing, or edema Neuro-cranial nerves II through XII intact, motor and sensory function within normal limits, strength symmetrical , no focal deficits Psych-normal affect, normal mood Results & Data Results & Data Vital Signs (Past 12 Hours) Vital Signs Temp Pulse Resp BP Pulse Ox O2 Del Method 03/17/23 14:27 36.9 C 73 16 123/81 93 Room Air 03/17/23 08:00 Room Air 03/17/23 07:39 97 Room Air 03/17/23 07:37 36.8 C 73 16 136/86 91 Room Air 03/17/23 07:15 62 16 96 Room Air Laboratory Results 03/17/23 06:40 03/17/23 05:39 PG Care Time/CCT Total # of Minutes Spent Total Time Spent with Patient: Total time spent is greater than 50% in coordination of care (as documented) at patient's floor/unit and/or counseling patient: Coding Level of Care Code 66662 SUB INP/OBS CARE 3/50MIN Diagnoses Pneumonia J18.9 Laterality: left Lung location: upper lobe of lung Pneumonia type: due to unspecified organism Headache R51.9 Transaminitis R74.01 DVT prophylaxis Z29.9 (1) Pneumonia Laterality: left Lung location: upper lobe of lung Pneumonia type: due to unspecified organism Qualified Code(s): J18.9 - Pneumonia, unspecified organism
[2023-03-17] MEDS ORDERED: Nursing to Pharmacy Communication SCH (22:45)
[2023-03-17] MEDS: NYSTATIN SUSP 500,000 U/5 ML UDC PO SCH (22:52)
[2023-03-18] MEDS: ACETAMINOPHEN 500 MG TAB PO SCH (05:26)
[2023-03-18] MEDS: NYSTATIN SUSP 500,000 U/5 ML UDC PO SCH (07:28)
[2023-03-18 07:33] LABS: Basophils # (auto) 0.03 K/uL (0-0.2); Basophils % (auto) 0.5 %; Eosinophils # (auto) 0.26 K/uL (0-0.50); Eosinophils % (auto) 4.2 %; Hematocrit (blood only) 40.3 % (42.0-52.0); Hemoglobin 14.3 g/dl (14.0-18.0); Immature Granulocytes # (auto) 0.08 K/uL (0.01-0.20); Immature Granulocytes % (auto) 1.3 %; Lymphocytes # (auto) 1.46 K/uL (1.2-3.4); Lymphocytes % (auto) 23.7 %; Mean Corpuscular Hemoglobin 31.6 pg (25.0-34.0); Mean Corpuscular Hgb Conc 35.5 g/dL (32.0-36.0); Mean Platelet Volume 9.4 fL (9.4-12.4); Monocytes # (auto) 0.73 K/uL (0.11-0.59); Monocytes % (auto) 11.8 %; Neutrophils # (auto) 3.61 K/uL (1.40-6.50); Neutrophils % (auto) 58.5 %; Platelet Count 304 K/uL (130-400); RDW Coefficient of Variation 14.1 % (11.5-14.5); RDW Standard Deviation 45.8 fL (36.4-46.3); Red Blood Count 4.53 M/uL (4.70-6.10); White Blood Count 6.17 K/ul (4.8-10.8)
[2023-03-18 07:52] LABS: Albumin Globulin Ratio 0.8 (0.9-2); Albumin Level 3.4 gm/dl (3.4-5.0); Bilirubin,Total 0.4 mg/dl (0.2-1.0); Calcium 8.7 mg/dl (8.6-10.3); Creatinine Clr Calc Pharmacy 98.4 ml/min; Est GFR (African American) 112.4 ml/min; Est GFR (Non-African American) 96.9 ml/min; Globulin 4.1 gm/dl (2.5-4.0); Potassium 3.6 mmol/L (3.5-5.1); Total Protein 7.5 gm/dl (6.0-8.3)
--- NOTE | 2023-03-18 11:24 | Discharge Summary ---
Date of Service March 18, 2023 Admission HPI Per Admitting Provider Mr. Lechuga is a 57-year-old male with a past medical history of GERD, past pneumonia, and rheumatic fever who presents with intractable headache, cough, and shortness of breath and who has a progressively worsening. Dense left lateral airspace opacity increased from earlier in the week ER evaluation. Due to his severe intractable headache and persistent symptoms with rising ESR. Curb 65 with 0 points; however due to worsening over the last 2 days and density of infiltrate patient is recommended for admission of high risk pneumonia, with severe headache evaluation given persistence since 03/11. CT shows no acute he morrhage, infarct, or other acute process. Due to his headache with persistent nausea/vomiting patient did undergo an LP in the ER which has been sent for PCR studies. Transaminases are mildly elevated, platelet count is normal. Lyme and anaplasmosis tests are pending. Sputum culture ordered at time of consultation. EKG on admission is normal sinus rhythm without acute ST segment changes or n otable arrhythmia. QTc is 402. No heart block/DC 168 Patient reports Friday/Friday had headache, fever, chills, and cough. Had an XR, COVID, and flu test as outpatient 'which were all negative.' Returned home but headache which began last Friday continued to worsen and returned his PCP on . XR showed ?LLL PNA and was placed on cefdinir and doxycycline. Continued to have headache and feel poorly and was referred to the ER. - Headache has been constant 10/10 since , progressively increasing since Friday - +nonproductive cough which has actually improved over the last 2 days. L lateral chest hurts when coughing. - Fevers up to 101-102.4, last fever was 99.9*F this morning - +chills, +sweats which seem to be worse night and last night. +night sweats + Vomiting yesterday, watery in color without blood or melena. Some chicken soup in + diarrhea just since yesterday Rosie photo/phonosenstive Pt reports prior to arrival in the [place] Box of course trigged a respiratory reaction very danie and breathed in some musty material/dust. 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 Medical History: Reviewed Medications: Reviewed Surgical History: Reviewed Family history: Reviewed Allergies: Reviewed. Allergic to aspirin (lip swelling) and amoxacillin (diarrhea and upset stomach). Social History: No tobacco product use. no etoh use. No recreational drug use. Code Status: Full Code Principal Diagnosis Left pneumonia of suspected viral etiology, headache of suspected viral etiology, viral syndrome Discharge Exam General-alert and oriented x3, no fevers, no chills HEENT-head atraumatic and normocephalic, pupils equal and reactive to light, extraocular muscles intact Neck-no lymphadenopathy or thyromegaly, trachea midline Chest-clear to auscultation percussion. No rales wheezing or rhonchi Cardiac-regular rate and rhythm, normal S1 and S2 Abdomen-normal bowel sounds, nontender, no hepatosplenomegaly Extremities-no cyanosis, clubbing, or edema Neuro-cranial nerves II through XII intact, motor and sensory function within normal limits, strength symmetrical , no focal deficits Psych-normal affect, normal mood Discharge Data Allergies Allergy/AdvReac Type Severity Reaction Status Date / Time aspirin Allergy Intermediate LIPS SWELL Verified 03/13/23 20:26 amoxicillin AdvReac Intermediate DIARRHEA Verified 03/13/23 20:26 Consultations 03/15/23 11:32 ED Decision to Admit Stat Ordered Studies 03/15/23 08:55 CT head/brain wo con Stat 03/15/23 12:29 CT chest diagnostic wo con Urgent Hospital Course (1) Pneumonia: Nonproductive cough. Probably viral. Chest x-ray is stable. MRSA nares is negative. Treated while hospitalized with Rocephin and doxycycline. He took several doses of cefdinir and doxycycline as an outpatient and states the doxycycline upsets his stomach. He will take the cefdinir at discharge (2) Headache: Now resolved. Symptomatic treatment. CSF fluid cultures negative (3) Transaminitis: Mild. Serial labs. No intervention necessary at this time. Suspect viral etiology (4) DVT prophylaxis: Ambulation Plan Home today, March 18 Total Time Total Time Spent Total Time Spent (In Minutes): 40 minutes Discharge Plan Discharge Items Patient Disposition: Home - Self-Care Reason For Visit: PNA, HEADACHE Discharge Diagnosis: Viral syndrome, viral headache, viral pneumonia Activity: Resume your previous activity Non-emergency contact: Primary Care Provider Call non-emergency contact if: your symptoms worsen Follow-up/Referrals: Edouard Khan MD [Primary Care Provider] - Diet: Regular Addtl Attending Provider Instructions: Take cefdinir twice daily as directed until gone. Take Tylenol or ibuprofen as needed for any recurrent headache Pending Studies at Discharge: No Stand-Alone Forms: [facility], Sm[facility] Cessation Medications and DC Order Prescriptions: Continued acetaminophen [Tylenol Extra Strength] 500 mg Tablet 1,000 mg PO Q8H PRN (Reason: PAIN/FEVER) ibuprofen 200 mg Tablet 600 mg PO Q6H PRN (Reason: PAIN/FEVER) cefdinir 300 mg capsule 300 mg PO BID 10 Days Qty: 20 0RF Discontinued doxycycline hyclate 100 mg tablet 100 mg PO BID 10 Days Qty: 20 0RF Discharge Orders: Discharge Order (Routine); Ordered 03/18/23 Ordered By: Parminder Tucker Admission Data Admit Date/Time: 03/15/23 12:29 Attending Provider: Parminder Tucker Admit Provider: Edouard Kilgore Primary Care Provider: Edouard Khan Other Providers: Edouard Kilgore ; Jason Crocker Coding Level of Care Code 89882 INP/OBS DISCH >30 MIN Diagnoses Pneumonia J18.9 Laterality: left Lung location: upper lobe of lung Pneumonia type: due to unspecified organism Headache R51.9 Transaminitis R74.01 DVT prophylaxis Z29.9
[2023-03-20 07:57] LABS: EBV DNA Quant PCR Not Detected copies/mL; EBV DNA Quant Source CSF; Lyme DNA PCR CSF or Synovial Not Detected (Not Detected); Lyme DNA Source CSF; West Nile Virus, PCR Source CSF; West Nile Virus, PCR, CSF NOT DETECTED (NOT DETECTED)
[2023-03-21 21:42] LABS: Fungitell (1-3)-B-D-Glucan <31 pg/mL
== END 2023-03-18 13:06 | disposition home or self-care (01) | DRG 195 ==
LOC: ED 08:13 → 3E 12:29 → SUATTDRO 12:29 → 3E 15:14